=== PATIENT | male | born 1985 | race Two or more races ===

== ENCOUNTER 2019-07-16 14:39 | Emergency (ER) | payer OTHER ==
[~2019-07-16] VITALS: Ht 170.2 cm; Wt 119.3 kg
[2019-07-16 14:49] VITALS: BP 113/77
== END 2019-07-16 16:19 | disposition home or self-care (01) ==
LOC: ED 16:02
DX: M25.571 Pain in right ankle and joints of right foot (principal); F17.200 Nicotine dependence, unspecified, uncomplicated
CPT/HCPCS: 73610; 73630; 96372; 99283; J1885

== ENCOUNTER 2020-06-01 19:38 | Emergency (ER) | payer OTHER ==
[~2020-06-01] VITALS: Ht 170.2 cm; Wt 113.5 kg
[~2020-06-01 19:38] MED LIST: ACET-709 PO; [UNRECOGNIZED DRUG - REMARK]
--- NOTE | 2020-06-01 19:50 | NUR ---
EKG DONE IN TRIAGE.
--- NOTE | 2020-06-01 20:02 | NUR ---
PT CAME IN CO OF SOB THAT STARTED OVER THE WEEKEND AND HE WENT TO WORK LAST NIGHT AND IT GOT PROGRESSIVLEY WORSE. PT ALSO REPORTS A NON PRODUCTIVE COUGH THAT STARTED TODAY WELL FEELING FATIGUED. EKG COMPLETE. PT RESTING IN [facility] CONNECTED TO MONITORING EQUIPMENT. CALL LIGHT WITHIN REACH
[2020-06-01] MEDS ORDERED: ALBUTEROL/IPRATROPIUM 2.5MG/0.5MG, 3 ML ONE (20:20)
[2020-06-01] MEDS ORDERED: ALBUTEROL/IPRATROPIUM 2.5MG/0.5MG, 3 ML NPPB ONE (20:30)
--- NOTE | 2020-06-01 21:21 | NUR ---
With reassessment post-neb treatment>Patient report wob improved from 9/10 to 7/10 Lung sounds improved to bases
[2020-06-01 21:34] VITALS: BP 139/74
== END 2020-06-01 22:10 | disposition home or self-care (01) ==
LOC: ED 21:15
DX: J98.01 Acute bronchospasm (principal); Z20.828 Contact with and (suspected) exposure to other viral communicable diseases; R07.9 Chest pain, unspecified; R61 Generalized hyperhidrosis; F17.200 Nicotine dependence, unspecified, uncomplicated
CPT/HCPCS: 36415; 71045; 87635; 93005; 94640; 99285; J7512